=== PATIENT | male | born 1990 | race Native Hawaiian/Other Pacific Islander ===

== ENCOUNTER 2022-08-22 07:13 | Emergency (ER) | payer MEDICAID ==
--- NOTE | 2022-08-22 07:50 | ERPHSYRPT ---
- History of Present Illness Time Seen by Provider: 08/22/22 07:50 Source: patient Exam Limitations: no limitations Physician History: This is a 32-year-old white male who presents with 1 day history of intermittent fevers, arthralgias and myalgias. He has had no nausea vomiting or diarrhea. Patient has a mild cough as well. Patient has no known exposure to individuals with similar symptoms or diagnoses of flu. He last took Tylenol yesterday during the day. Timing/Duration: yesterday Fever Severity: mild (To moderate) Fever Therapy PRIMARY CARE PROVIDER: none Associated Symptoms: cough, headache, muscle aches, No abdominal pain, No chest pain, No confusion, No nausea/vomiting, No sore throat, No stiff neck Allergies/Adverse Reactions: No Known Drug Allergies Allergy (Unverified 08/22/22 08:18) Travel Risk - International Travel Have you traveled outside of the country in past 3 weeks: No - Coronavirus Screening Are you exhibiting any of the following symptoms?: Yes Symptoms: Fever, Cough: New Onset, Headaches/Body Aches/Fatigue Close contact with a COVID-19 positive Pt in past 14-21 Days: No - Review of Systems Constitutional: Fever Eyes: No Symptoms Ears, Nose, & Throat: No Symptoms Respiratory: Cough Cardiac: No Symptoms Abdominal/Gastrointestinal: No Symptoms Genitourinary Symptoms: No Symptoms Musculoskeletal: Arthralgias, Myalgias Skin: No Symptoms Neurological: No Symptoms Psychological: No Symptoms Endocrine: No Symptoms Hematologic/Lymphatic: No Symptoms Immunological/Allergic: No Symptoms All Other Systems: Reviewed and Negative - Past Medical History Pertinent Past Medical History: Yes - Past Surgical History Past Surgical History: Yes - Nursing Vital Signs Nursing Vital Signs: Initial Vital Signs Temperature 100.1 F 08/22/22 08:00 Pulse Rate 106 H 08/22/22 08:00 Respiratory Rate 20 08/22/22 08:00 Blood Pressure 128/73 08/22/22 08:00 O2 Sat by Pulse Oximetry 97 08/22/22 08:00 Pain Scale Pain Intensity 8 - Physical Exam General Appearance: no apparent distress, alert, anxiety Eye Exam: PERRL/EOMI, eyes nml inspection ENT Exam: normal ENT inspection Neck Exam: normal inspection, non-tender, supple, full range of motion Respiratory Exam: normal breath sounds, lungs clear, no respiratory distress, No chest non-tender Cardiovascular/Chest Exam: tachycardia Gastrointestinal/Abdominal Exam: soft, non tender, no distention, no mass, no guarding, no ecchymosis, no organomegaly, no pulsatile mass, normal bowel sounds Rectal Exam: not done Extremity Exam: non-tender, normal range of motion, normal inspection Neurologic Exam: alert, oriented x 3, cooperative, cutter 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 II-XII nml as tested, normal mood/affect, nml cerebellar function, nml station & gait, sensation nml Skin Exam: normal color, warm, dry Lymphatic: No adenopathy SpO2 Interpretation: normal O2 Delivery: Room Air - Course Nursing assessment & vital signs reviewed: Yes Ordered Tests: Medication Summary Discontinued Medications Generic Name Dose Route Start Last Admin Trade Name Kyle PRN Reason Stop Dose Admin Acetaminophen 650 mg 08/22/22 08:11 08/22/22 08:20 Acetaminophen 325 Mg Tablet PO 08/22/22 08:12 Not Given STAT STA Hydrocodone Bitart/Acetaminophen 15 ml 08/22/22 08:19 08/22/22 08:22 Hydrocodone/Acetaminophen 5 Ml Udcup PO 08/22/22 08:20 15 ml STAT STA Administration Hydrocodone Bitart/Acetaminophen Confirm 08/22/22 08:21 Hydrocodone/Acetaminophen 5 Ml Udcup Administered 08/22/22 08:22 Dose 15 ml .ROUTE .STK-MED ONE Ibuprofen 600 mg 08/22/22 08:11 08/22/22 08:20 Ibuprofen 600 Mg Tablet PO 08/22/22 08:12 600 mg STAT STA Administration Ibuprofen Confirm 08/22/22 08:19 Ibuprofen 600 Mg Tablet Administered 08/22/22 08:20 Dose 600 mg .ROUTE .STK-MED ONE Lab/Rad Data: Laboratory Results 08/22/22 08/22/22 Range/Units 08:24 08:24 Influenza Type A Ag NEGATIVE (NEGATIVE) Influenza Type B Ag NEGATIVE (NEGATIVE) RSV (PCR) NEGATIVE (Negative) SARS-CoV-2 (PCR) POSITIVE A (NEGATIVE) Group A Strep Antibody NOT DETECTED (NEGATIVE) - Progress Progress: improved Counseled pt/family regarding: lab results, diagnosis, need for follow-up - Departure Departure Disposition: Home Clinical Impression: Fever Condition: Stable Critical Care Time: No Referrals: STEVE VELOZ [Primary Care Provider] - Follow up/PCP as directed Additional Instructions: Drink plenty of cool liquids. May use a lukewarm bath/shower to help control fever as well. Take your medication as prescribed. Add ibuprofen 600 mg orally every 6-8 hours with food for fever/aches and pains control. Quarantine yourself per your employees protocol. Prescriptions: Hydrocodone/Acetaminophen [Hydrocodone-Acetamn 7.5-325/15] 10 ml PO Q8H PRN PRN #120 ml MDD 30 ml PRN Reason: Cough
[2022-08-22] MEDS ORDERED: MOTRIN 600 MG PO STA (08:11)
[2022-08-22] MEDS ORDERED: TYLENOL 325 MG PO STA (08:11)
[2022-08-22] MEDS ORDERED: HYDROCODONE-ACETAMIN 2.5-108/5 ML SOLUTION PO STA (08:19)
[2022-08-22] MEDS ORDERED: MOTRIN 600 MG ONE (08:19)
[2022-08-22] MEDS ORDERED: HYDROCODONE-ACETAMIN 2.5-108/5 ML SOLUTION ONE (08:21)
[2022-08-22 09:08] LABS: INFLUENZA A NEGATIVE (NEGATIVE); INFLUENZA B NEGATIVE (NEGATIVE); RESPIRATORY SYNCTIAL VIRUS NEGATIVE (Negative)
[2022-08-22 09:11] LABS: SARS-CoV-2 Xpert Express POSITIVE (NEGATIVE)
[2022-08-22 09:29] VITALS: BP 131/84; PULSE 78; O2SAT 96
== END 2022-08-22 09:29 | disposition home or self-care (01) ==
LOC: ED 07:13
DX: R50.9 Fever, unspecified (principal); M79.10 Myalgia, unspecified site; R05.1 Acute cough
CPT/HCPCS: 0241U; 87651; 99283; A9270-GY

== ENCOUNTER 2022-10-19 08:10 | Emergency (ER) | payer MEDICAID, OTHER ==
[2022-10-19] MEDS ORDERED: Sodium Chloride 0.9% 1000 ML 1,000 ML IV STA (08:23)
[2022-10-19] MEDS ORDERED: Sodium Chloride 0.9% 1000 ML 1,000 ML ONE (08:46)
[2022-10-19 08:48] LABS: BASOPHIL % 0.2 % (0.0-0.4); Basophil (Absolute #) 0.02 x10^3/uL (0-0.4); Eosinophil % 0.7 % (0.00-5.0); Eosinophil (Absolute #) 0.06 x10^3/uL (0-0.5); Hematocrit 41.6 % (42-50); Hemoglobin 13.4 g/dL (12.5-18.0); IMMATURE GRAN # 0.04 x10^3u/L (0.00-0.03); IMMATURE GRAN % 0.5 % (0.00-0.4); Lymphocyte (Absolute #) 1.37 x10^3/uL (1.0-4.6); Lymphocytes % 16.6 % (24.0-44.0); Mean Cell Volume 89.7 fL (78-100); Mean Corpuscular Hemoglobin 28.9 pg (26-32); Mean Corpuscular Hgb Concent. 32.2 g/dL (32-36); Mean Platelet Volume 8.8 fL (7.5-11.0); Monocyte (Absolute #) 0.68 x10^3/uL (0.0-1.3); Monocytes % 8.2 % (0.0-12.0); Neutrophil % 73.8 % (36.0-66.0); Platelet Count 305 x10^3/uL (150-450); Red Blood Count 4.64 x10^6/uL (4.1-5.6); Red Cell Distribution Width 15.2 % (11.5-14.0); White Blood Count 8.3 x10^3/uL (4.0-10.5)
[2022-10-19 09:05] LABS: ALBUMIN 4.4 g/dL (3.5-5.0); ALKALINE PHOSPHATASE 79 U/L (38-126); BLOOD UREA NITROGEN 25 mg/dL (9-20); CHLORIDE 110 mmol/L (98-107); Calcium 8.7 mg/dL (8.4-10.2); Carbon Dioxide 23 mmol/L (22-30); Creatinine 1 0.83 mg/dL (0.66-1.25); EST GLOMERULAR FILTRATION RATE > 60.0 ML/MIN; Glucose 94 mg/dL (74-106); LIPASE 37 U/L (23-300); Potassium 4.2 mmol/L (3.5-5.1); SGOT/AST 30 U/L (17-59); SGPT/ALT 31 U/L (0-50); SODIUM 140 mmol/L (137-145); Total Protein 7.4 g/dL (6.3-8.2)
[2022-10-19] MEDS ORDERED: MORPHINE SULFATE 4 MG INJ IV ONE (09:23)
[2022-10-19] MEDS ORDERED: Zofran 4 MG/2 ML VIAL IV ONE (09:23)
[2022-10-19] MEDS ORDERED: Zofran 4 MG/2 ML VIAL ONE (09:27)
[2022-10-19] MEDS ORDERED: MORPHINE SULFATE 4 MG INJ ONE (09:27)
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
--- NOTE | 2022-10-19 09:44 | XRAY ---
Indication: Epigastric pain. Multiple contiguous axial images obtained through the abdomen and pelvis without contrast. Comparison: None Lung bases are clear. Heart not enlarged. Old right innominate bone fracture with beam artifact from multiple orthopedic hardware limits exam. Stomach is distended with food/fluid. Contracted gallbladder without gallstones. Noncontrasted stomach and bowel loops appear nonobstructed. Appendix not visualized. Mild diffuse fecal debris throughout. Anterior right lobe liver demonstrate 9 mm peripheral cyst. IVC filter in situ with struts/legs seen extraluminal to the IVC. Distal IVC appears tiny. No free fluid/air. Abdomen and lesser degree pelvis demonstrates diffuse varices. Abdominal wall also demonstrates moderate diffuse subcutaneous varices. Primary concern is for portal hypertension. Main portal vein diameter is 1.9 cm. No hepatosplenomegaly. Remaining liver, gallbladder, pancreas, spleen, adrenal glands, kidneys, ureters, and bladder are unremarkable for noncontrast exam. Minimal aortic calcifications without AAA. Remaining osseous structures intact with minimal generative changes of the visualized spine, mild double curvature thoracolumbar scoliosis, and moderate/advanced degenerative changes of the right hip. Impression: 1. Old right pelvic fracture with beam artifact from multiple fixation hardware. 2. Tiny IVC with IVC filter in situ. IVC filter struts/legs seen extraluminal without complications. 3. Diffuse abdominal/pelvic varices. Also diffuse abdominal wall subcutaneous varices. Findings favor portal hypertension. 4. Mild diffuse fecal stasis. 5. Chronic findings including small hepatic cyst, minimal arteriosclerotic disease, and chronic bony findings.
[2022-10-19 10:26] VITALS: BP 143/94; PULSE 78; O2SAT 99
== END 2022-10-19 10:26 | disposition home or self-care (01) ==
LOC: ED 08:10
DX: R19.7 Diarrhea, unspecified (principal); R10.13 Epigastric pain; K76.6 Portal hypertension; I86.2 Pelvic varices; I86.8 Varicose veins of other specified sites; K76.89 Other specified diseases of liver; M41.85 Other forms of scoliosis, thoracolumbar region; I10 Essential (primary) hypertension; Z28.310 Unvaccinated for COVID-19; Z72.0 Tobacco use
CPT/HCPCS: 36415; 74176; 80053; 83690; 84484; 85025; 96360; 96374; 96375; 99284; J2270; J2405

== ENCOUNTER 2022-12-29 12:56 | Day surgery (SDC) | payer OTHER ==
[2022-12-29] MEDS ORDERED: LIDOCAINE HCL 2% 100 MG/5 ML IJ ONE (12:57)
[2022-12-29] MEDS ORDERED: Versed 2 MG/2 ML Injection ONE ×2 (15:06)
[2022-12-29] MEDS ORDERED: DIPRIVAN 200 MG/20 ML IV ONE ×2 (15:29→15:37)
[2022-12-29] MEDS ORDERED: Lactated Ringers 1,000 ML IV ONE (16:10)
--- NOTE | 2022-12-29 16:45 | XRAY ---
Indication: Bilateral L4-S1 MBB. Intraoperative fluoroscopy provided for 17 seconds. Single digital spot image submitted for interpretation demonstrates posterior needle tips projecting over the expected left and right L4-S1 nerve roots. Correlate with intraoperative findings/report.
--- NOTE | 2022-12-29 16:47 | XRAY ---
17 seconds of fluoroscopy was used in surgery for a bilateral L4-S1 MBB.
== END 2022-12-29 16:00 | disposition home or self-care (01) ==
LOC: SDC-PAIN 12:56
PROVIDERS: ATTEND Psychiatry & Neurology Pain Medicine
DX: M47.816 Spondylosis without myelopathy or radiculopathy, lumbar region (principal); Z79.899 Other long term (current) drug therapy
CPT/HCPCS: 36415; 64493; 64494; 72020; 77002; 84403; J2250; J2704

== ENCOUNTER 2023-01-19 11:43 | Day surgery (SDC) | payer OTHER ==
[2023-01-19] MEDS ORDERED: BUPIVACAINE 0.5% VIAL IJ ONE (11:44)
[2023-01-19] MEDS ORDERED: Versed 2 MG/2 ML Injection ONE ×2 (13:12→13:28)
[2023-01-19] MEDS ORDERED: DIPRIVAN 200 MG/20 ML IV ONE (14:07)
[2023-01-19] MEDS ORDERED: Lactated Ringers 1,000 ML IV ONE (14:24)
--- NOTE | 2023-01-19 16:28 | XRAY ---
Indication: Bilateral L4-S1 MBB. Intraoperative fluoroscopy provided for 15 seconds. Single digital spot image submitted for interpretation demonstrates posterior needle tips projecting over the expected left and right L4-S1 nerve roots. Correlate with intraoperative findings/report.
--- NOTE | 2023-01-19 16:37 | XRAY ---
15 seconds of fluoroscopy was used in surgery for a bilateral L4-S1 MBB.
== END 2023-01-19 14:40 | disposition home or self-care (01) ==
LOC: SDC-PAIN 11:43
PROVIDERS: ATTEND Psychiatry & Neurology Pain Medicine
DX: M47.816 Spondylosis without myelopathy or radiculopathy, lumbar region (principal); Z79.899 Other long term (current) drug therapy
CPT/HCPCS: 64493; 64494; 72020; 77002; J2250; J2704

== ENCOUNTER 2023-02-09 13:56 | Day surgery (SDC) | payer OTHER ==
[2023-02-09] MEDS ORDERED: BUPIVACAINE 0.5% VIAL IJ ONE (13:57)
[2023-02-09] MEDS ORDERED: LIDOCAINE HCL 1% 50 MG/5 ML VL PF IJ ONE (13:57)
[2023-02-09] MEDS ORDERED: Depo-Medrol 40 MG/ML IM ONE (13:57)
[2023-02-09] MEDS ORDERED: Versed 2 MG/2 ML Injection ONE (14:55)
[2023-02-09] MEDS ORDERED: DIPRIVAN 200 MG/20 ML IV ONE ×2 (15:00→15:18)
[2023-02-09] MEDS ORDERED: Lactated Ringers 1,000 ML IV ONE (15:11)
--- NOTE | 2023-02-10 07:16 | XRAY ---
Indication: Right L4-S1 RFA. Intraoperative fluoroscopy provided for 23 seconds. 4 digital spot image submitted for interpretation demonstrates posterior needle tips projecting over the expected right L4-S1 nerve roots. Correlate with intraoperative findings/report.
--- NOTE | 2023-02-10 15:07 | XRAY ---
23 seconds of fluoroscopy was used in surgery for a right L4-S1 RFA.
== END 2023-02-09 15:40 | disposition home or self-care (01) ==
LOC: SDC-PAIN 13:56
PROVIDERS: ATTEND Psychiatry & Neurology Pain Medicine
DX: M47.816 Spondylosis without myelopathy or radiculopathy, lumbar region (principal); Z79.899 Other long term (current) drug therapy
CPT/HCPCS: 64635; 64636; 72100; 77002; J1030; J2001; J2250; J2704

== ENCOUNTER 2023-02-23 12:58 | Day surgery (SDC) | payer OTHER ==
[2023-02-23] MEDS ORDERED: BUPIVACAINE 0.5% VIAL IJ ONE (12:59)
[2023-02-23] MEDS ORDERED: LIDOCAINE HCL 1% 50 MG/5 ML VL PF IJ ONE (12:59)
[2023-02-23] MEDS ORDERED: Depo-Medrol 40 MG/ML IM ONE (12:59)
[2023-02-23] MEDS ORDERED: Versed 2 MG/2 ML Injection ONE (13:42)
[2023-02-23] MEDS ORDERED: DIPRIVAN 200 MG/20 ML IV ONE ×2 (14:53→14:58)
[2023-02-23] MEDS ORDERED: Lactated Ringers 1,000 ML IV ONE (15:22)
--- NOTE | 2023-02-23 16:31 | XRAY ---
Indication: Left L4-S1 RFA. Intraoperative fluoroscopy provided for 26 seconds. 5 digital spot images submitted for interpretation demonstrates posterior needle tips projecting over the expected left L4-S1 nerve roots. Correlate with intraoperative findings/report.
--- NOTE | 2023-02-23 17:22 | XRAY ---
26 seconds of fluoroscopy was used in surgery for a left L4-S1 RFA.
== END 2023-02-23 15:30 | disposition home or self-care (01) ==
LOC: SDC-PAIN 12:58
PROVIDERS: ATTEND Psychiatry & Neurology Pain Medicine
DX: M47.816 Spondylosis without myelopathy or radiculopathy, lumbar region (principal); Z79.899 Other long term (current) drug therapy
CPT/HCPCS: 64635; 64636; 72100; 77002; J1030; J2001; J2250; J2704

== ENCOUNTER 2023-07-06 11:48 | Day surgery (SDC) | payer OTHER ==
[2023-07-06] MEDS ORDERED: Depo-Medrol 40 MG/ML IM ONE (11:49)
[2023-07-06] MEDS ORDERED: BUPIVACAINE 0.5% VIAL IJ ONE (11:49)
[2023-07-06] MEDS ORDERED: DIPRIVAN 200 MG/20 ML IV ONE (15:34)
[2023-07-06] MEDS ORDERED: Lactated Ringers 1,000 ML IV ONE (17:04)
--- NOTE | 2023-07-06 17:04 | XRAY ---
14 seconds of fluoroscopy was used in surgery for a right intra-articular hip injection.
--- NOTE | 2023-07-06 17:05 | XRAY ---
Indication: Right hip injection. Intraoperative fluoroscopy provided for 14 seconds. 2 digital spot images submitted for interpretation demonstrates needle tip projecting lateral to right femur neck. Small amount of contrast injected for needle tip placement. Correlate with intraoperative findings/report. Incidental incompletely visualized right pelvic fixation plates/screws.
== END 2023-07-06 15:54 | disposition home or self-care (01) ==
LOC: SDC-PAIN 11:48
PROVIDERS: ATTEND Psychiatry & Neurology Pain Medicine
DX: M16.11 Unilateral primary osteoarthritis, right hip (principal); Z79.899 Other long term (current) drug therapy
CPT/HCPCS: 20610; 73501; 77002; J1030; J2704; Q9966

== ENCOUNTER 2023-07-07 11:51 | Emergency (ER) | payer OTHER ==
--- NOTE | 2023-07-07 12:10 | XRAY ---
Indication: Facial numbness. Multiple contiguous axial images obtained through the head without contrast. Comparison: None Normal appearing brain parenchyma, ventricles, and bony calvarium. Visualized paranasal sinuses and mastoid air cells are clear. Impression: Normal CT head without contrast exam.
[2023-07-07 12:15] VITALS: TEMP 98.4
[2023-07-07] MEDS ORDERED: Sodium Chloride 0.9% 1000 ML 1,000 ML IV STA (12:21)
[2023-07-07 12:38] LABS: Absolute Neutrophil Ct (ANC) 10.36 x10^3/uL (1.4-6.9); BASOPHIL % 0.2 % (0.0-0.4); Basophil (Absolute #) 0.03 x10^3/uL (0-0.4); Eosinophil % 0.1 % (0.00-5.0); Eosinophil (Absolute #) 0.01 x10^3/uL (0-0.5); Hematocrit 45.8 % (42-50); Hemoglobin 14.8 g/dL (12.5-18.0); IMMATURE GRAN # 0.07 x10^3u/L (0.00-0.03); IMMATURE GRAN % 0.6 % (0.00-0.4); Lymphocyte (Absolute #) 1.58 x10^3/uL (1.0-4.6); Lymphocytes % 12.5 % (24.0-44.0); Mean Cell Volume 87.9 fL (78-100); Mean Corpuscular Hemoglobin 28.4 pg (26-32); Mean Corpuscular Hgb Concent. 32.3 g/dL (32-36); Mean Platelet Volume 9.1 fL (7.5-11.0); Monocyte (Absolute #) 0.63 x10^3/uL (0.0-1.3); Neutrophil % 81.6 % (36.0-66.0); Platelet Count 401 x10^3/uL (150-450); Red Blood Count 5.21 x10^6/uL (4.1-5.6); Red Cell Distribution Width 13.5 % (11.5-14.0); White Blood Count 12.7 x10^3/uL (4.0-10.5)
[2023-07-07] MEDS ORDERED: Sodium Chloride 0.9% 1000 ML 1,000 ML ONE (12:47)
[2023-07-07] MEDS ORDERED: TORAdol 30 mg Injection ONE (12:50)
[2023-07-07] MEDS ORDERED: TORAdol 30 mg Injection IV ONE (12:50)
[2023-07-07 12:53] LABS: ALBUMIN 4.7 g/dL (3.5-5.0); ALKALINE PHOSPHATASE 65 U/L (38-126); ANION GAP 16.9 MEQ/L (5-15); BLOOD UREA NITROGEN 14 mg/dL (9-20); CHLORIDE 108 mmol/L (98-107); Calcium 9.1 mg/dL (8.4-10.2); Carbon Dioxide 22 mmol/L (22-30); Creatinine 1 0.85 mg/dL (0.66-1.25); EST GLOMERULAR FILTRATION RATE > 60.0 ML/MIN; Glucose 102 mg/dL (74-106); SGOT/AST 23 U/L (17-59); SGPT/ALT 29 U/L (0-50); SODIUM 142 mmol/L (137-145); Total Protein 7.8 g/dL (6.3-8.2)
[2023-07-07 12:54] VITALS: RESP 16; O2SAT 96
--- NOTE | 2023-07-07 13:11 | ERPHSYRPT ---
- History of Present Illness Time Seen by Provider: 07/07/23 12:00 Source: patient Exam Limitations: no limitations Patient Subjective Stated Complaint: Pt reports this morning he woke up around [id number] and noticed his right cheek felt numb and had a little chest pain. A pprox 45 minutes ago patient realized it is hard to wink right eye and the right side of his lip doesn't feel like it is moving as well. Also reports headache x5 days and history of hypertension that he does not take medication for. Triage Nursing Assessment: Pt alert and oriented x3. No apparent respiratory distress. Ambulated to ED cot without difficulty. Skin w/p/d. Strong equal guide tour bilat. Mild right facial droop. Pt was able to wink left eye quickly and without difficulty but took a moment to be able to wink right eye. Physician History: Patient is a 33-year-old white male who presents with a complaint of a headache on the right parietal area for 5 days. Today he noticed right facial drooping he also noted that he could blink his eye with more force than on the right side he also noted numbness of the right side of the tongue and right facial weakness. He is hypertensive but is not treated. He also was very anxious. Timing/Duration: day(s) (5) Severity: mild Character of Deficits: altered sensation, Right Facial Baseline/Normal Cognition: alert oriented x 3 Current Cognition: alert oriented x 3 Baseline Gait: walks w/o assistance Associated Symptoms: slurred speech Allergies/Adverse Reactions: No Known Drug Allergies Allergy (Verified 07/07/23 12:07) Home Medications: Hydrocodone/Acetaminophen [Hydrocodone-Acetamin 10-325 mg] 1 tab PO BID PRN 07/07/23 [History] Topiramate [Topiramate ER] See Rx Instructions .ROUTE .COMPLEX 07/07/23 [History] Hx Tetanus, Diphtheria Vaccination/Date Given: Yes Hx Influenza Vaccination/Date Given: No Hx Pneumococcal Vaccination/Date Given: No Travel Risk - International Travel Have you traveled outside of the country in past 3 weeks: No - Coronavirus Screening Are you exhibiting any of the following symptoms?: No Close contact with a COVID-19 positive Pt in past 14-21 Days: No - Vaccine Status Have you recieved a Covid-19 vaccination: No - Review of Systems Constitutional: No Fever, No Chills Eyes: No Symptoms Ears, Nose, & Throat: No Symptoms Respiratory: No Cough, No Dyspnea Cardiac: No Chest Pain, No Edema, No Syncope Abdominal/Gastrointestinal: No Abdominal Pain, No Nausea, No Vomiting, No Diarrhea Genitourinary Symptoms: No Dysuria Musculoskeletal: No Back Pain, No Neck Pain Skin: No Rash Neurological: No Dizziness, No Focal Weakness, No Sensory Changes Psychological: No Symptoms Endocrine: No Symptoms All Other Systems: Reviewed and Negative - Past Medical History Pertinent Past Medical History: Yes Cardiac History: Hypertension Musculoskeletal History: Fractures GI Medical History: Other Other Medical History: bowel obstruction, fx: right ankle, right hip, forearm, jaw - Past Surgical History Past Surgical History: Yes Gastrointestinal: Colon Resection Musculoskeletal: Orthopedic Surgery - Social History Smoking Status: Current every day smoker Exposure to second hand smoke: Yes Drug Use: none Patient Lives Alone: No - Nursing Vital Signs Nursing Vital Signs: Initial Vital Signs Temperature 98.4 F 07/07/23 11:52 Pulse Rate 108 H 07/07/23 11:52 Respiratory Rate 17 07/07/23 11:52 Blood Pressure 158/107 07/07/23 11:52 O2 Sat by Pulse Oximetry 99 07/07/23 11:52 Pain Scale Pain Intensity 4 - Nicolás Coma Scale Best Eye Response (Nicolás): (4) open spontaneously Best Verbal Response (Baker): (5) oriented Best Motor Response (Nicolás): (6) obeys commands Nicolás Total: 15 - Physical Exam General Appearance: no apparent distress, alert Eye Exam: bilateral eye: PERRL, EOMI Ears, Nose, Throat Exam: normal ENT inspection, moist mucous membranes Neck Exam: normal inspection, non-tender, supple Respiratory: normal breath sounds, lungs clear, airway intact, No respiratory distress Cardiovascular: regular rate/rhythm, No edema Gastrointestinal: soft, No tenderness, No distention Back Exam: normal inspection Extremity Exam: normal inspection, No pedal edema 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, 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 Exam: facial asymmetry, facial droop (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 there is paralysis noted from the forehead do), facial weakness, tongue midline Coordination/Gait: normal finger to nose, normal gait Skin Exam: normal color, warm, dry, No rash SpO2 Interpretation: normal SpO2: 96 O2 Delivery: Room Air - Course Nursing assessment & vital signs reviewed: Yes EKG Interpreted by Me: RATE (112), Sinus Tach, NORMAL AXIS, NORMAL QRS, NORMAL ST-T - CT Exams Head CT Interpretation: Negative Ordered Tests: Active Orders 24 hr Category Date Time Status EKG-ER Only STAT Care 07/07/23 12:31 Active IV Insertion STAT Care 07/07/23 12:21 Active HEAD WITHOUT CONTRAST [CT] Stat Exams 07/07/23 11:54 Completed CBC W DIFF Stat Lab 07/07/23 12:10 Completed CMP Stat Lab 07/07/23 12:10 Completed Lactic Acid Stat Lab 07/07/23 12:37 Completed UA W/RFX UR CULTURE Stat Lab 07/07/23 12:31 Ordered Medication Summary Generic Name Dose Route Start Last Admin Trade Name Freq PRN Reason Stop Dose Admin Sodium Chloride 1,000 mls @ 999 mls/hr 07/07/23 12:21 07/07/23 12:48 Sodium Chloride 0.9% 1000 Ml IV 07/07/23 13:21 999 mls/hr .Q1H1M STA Administration Discontinued Medications Generic Name Dose Route Start Last Admin Trade Name Freq PRN Reason Stop Dose Admin Sodium Chloride Confirm 07/07/23 12:47 Sodium Chloride 0.9% 1000 Ml Administered 07/07/23 12:48 Dose 1,000 mls @ ud .ROUTE .STK-MED ONE Ketorolac Tromethamine 30 mg 07/07/23 12:50 07/07/23 12:51 Ketorolac Tromethamine 30 Mg/Ml Inj IV 07/07/23 12:51 30 mg STAT ONE Administration Ketorolac Tromethamine Confirm 07/07/23 12:50 Ketorolac Tromethamine 30 Mg/Ml Inj Administered 07/07/23 12:51 Dose 30 mg .ROUTE .STK-MED ONE Lab/Rad Data: Laboratory Result Diagrams 07/07/23 12:10 07/07/23 12:10 Laboratory Results 07/07/23 07/07/23 07/07/23 Range/Units 12:37 12:10 12:10 WBC 12.7 H (4.0-10.5) x10^3/uL RBC 5.21 (4.1-5.6) x10^6/uL Hgb 14.8 (12.5-18.0) g/dL Hct 45.8 (42-50) % MCV 87.9 (78-100) fL MCH 28.4 (26-32) pg MCHC 32.3 (32-36) g/dL RDW 13.5 (11.5-14.0) % Plt Count 401 (150-450) x10^3/uL MPV 9.1 (7.5-11.0) fL Gran % 81.6 H (36.0-66.0) % Immature Gran % (Auto) 0.6 H (0.00-0.4) % Nucleat RBC Rel Count 0.0 (0.00-0.1) % Eos # (Auto) 0.01 (0-0.5) x10^3/uL Immature Gran # (Auto) 0.07 H (0.00-0.03) x10^3u/L Absolute Lymphs (auto) 1.58 (1.0-4.6) x10^3/uL Absolute Monos (auto) 0.63 (0.0-1.3) x10^3/uL Absolute Nucleated RBC 0.00 (0.00-0.01) x10^3u/L Lymphocytes % 12.5 L (24.0-44.0) % Monocytes % 5.0 (0.0-12.0) % Eosinophils % 0.1 (0.00-5.0) % Basophils % 0.2 (0.0-0.4) % Absolute Granulocytes 10.36 H (1.4-6.9) x10^3/uL Basophils # 0.03 (0-0.4) x10^3/uL Sodium 142 (137-145) mmol/L Potassium 4.0 (3.5-5.1) mmol/L Chloride 108 H (98-107) mmol/L Carbon Dioxide 22 (22-30) mmol/L Anion Gap 16.9 H (5-15) MEQ/L BUN 14 (9-20) mg/dL Creatinine 0.85 (0.66-1.25) mg/dL Estimated GFR > 60.0 ML/MIN Glucose 102 (74-106) mg/dL Lactic Acid 1.4 (0.4-2.0) Calcium 9.1 (8.4-10.2) mg/dL Total Bilirubin 0.40 (0.2-1.3) mg/dL AST 23 (17-59) U/L ALT 29 (0-50) U/L Alkaline Phosphatase 65 (38-126) U/L Serum Total Protein 7.8 (6.3-8.2) g/dL Albumin 4.7 (3.5-5.0) g/dL - Progress Progress: unchanged Medical Desision Making - Diagnostic Testing Radiological Interpretation: Reviewed by me - Risk of complications Low Risk: Low risk of morbidity from additional dx testing or treatment - Departure Departure Disposition: Home Clinical Impression: Sanders's palsy Condition: Stable Critical Care Time: No Referrals: DEB OBREGON [Primary Care Provider] - Follow up/PCP as directed Instructions: Sanders's Palsy (DC) Prescriptions: Acyclovir 800 mg [Acyclovir] 800 mg PO TID 7 Days #21 tablet Prednisone 10 mg [Deltasone 10 mg] 20 mg PO TID 7 Days #21 tablet
[2023-07-07 13:18] VITALS: BP 141/103; PULSE 114
[2023-07-07 13:46] LABS: Appearance Clear (Clear); Bacteria None Seen /HPF (None Seen); Bilirubin Negative (Negative); Blood Negative (Negative); Epithelial Cells None Seen /HPF (None Seen); Glucose, Urine Negative (Negative); Hyaline Casts NONE SEEN /LPF (0-2); Ketones Trace (Negative); Leukocyte Esterase Negative (Negative); Nitrite Negative (Negative); Ph 5.5 (4.6-8.0); Protein,Urine Dip Trace (Negative); RBC 0-2 /HPF (0-5); Specific Gravity >=1.030 (1.005-1.030); Urobilinogen 0.2 mg/dL (0.2); WBC 0-2 /HPF (0-5)
[2023-07-07 13:54] LABS: ADD URINE CULTURE? NO (NO)
== END 2023-07-07 13:53 | disposition home or self-care (01) ==
LOC: ED 11:51
DX: G51.0 Bell's palsy (principal); R51.9 Headache, unspecified; I10 Essential (primary) hypertension; Z79.891 Long term (current) use of opiate analgesic; Z79.52 Long term (current) use of systemic steroids; Z79.899 Other long term (current) drug therapy; Z28.310 Unvaccinated for COVID-19; Z72.0 Tobacco use
CPT/HCPCS: 36000; 36415; 70450; 80053; 81001; 83605; 85025; 93005; 96360; 96374; 99284; J1885

== ENCOUNTER 2024-05-21 12:20 | Emergency (ER) | payer OTHER ==
[2024-05-21 12:29] VITALS: TEMP 98.1
[2024-05-21] MEDS ORDERED: Sodium Chloride 0.9% 1000 ML 1,000 ML ONE (13:06)
[2024-05-21] MEDS ORDERED: APRESOLINE 20 MG/ML INJ ONE (13:06)
[2024-05-21] MEDS: Sodium Chloride 0.9% 1000 ML 1,000 ML IV STA (13:07)
[2024-05-21] MEDS: APRESOLINE 20 MG/ML INJ IV ONE (13:08)
[2024-05-21 13:33] LABS: Hematocrit 41.6 % (40.1-51.0); Hemoglobin 13.9 g/dL (13.7-17.5); Mean Cell Volume 86.5 fL (79.0-92.2); Mean Corpuscular Hemoglobin 28.9 pg (25.7-32.2); Mean Corpuscular Hgb Concent. 33.4 g/dL (32.3-36.5); Mean Platelet Volume 9.7 fL (9.4-12.4); Platelet Count 335 x10^3/uL (163-337); Red Blood Count 4.81 x10^6/uL (4.63-6.08); Red Cell Distribution Width 13.6 % (11.6-14.4); White Blood Count 10.2 x10^3/uL (4.23-9.07)
[2024-05-21 13:38] LABS: Appearance Clear (Clear); Bacteria None Seen /HPF (None Seen); Bilirubin Negative (Negative); Blood Negative (Negative); Epithelial Cells None Seen /HPF (None Seen); Glucose, Urine Negative (Negative); Hyaline Casts NONE SEEN /LPF (0-2); Ketones Trace (Negative); Leukocyte Esterase Negative (Negative); Nitrite Negative (Negative); Ph 5.5 (4.6-8.0); Protein,Urine Dip Trace (Negative); RBC 0-2 /HPF (0-5); Specific Gravity >=1.030 (1.005-1.030); WBC 0-2 /HPF (0-5)
[2024-05-21 13:40] LABS: ADD URINE CULTURE? NO (NO)
[2024-05-21 13:42] LABS: ALBUMIN 4.5 g/dL (3.5-5.0); ANION GAP 11.3 MEQ/L (5-15); BILIRUBIN,TOTAL 0.3 mg/dL (0.2-1.3); Calcium 9.7 mg/dL (8.4-10.2); Creatinine 1 0.84 mg/dL (0.66-1.25); EST GLOMERULAR FILTRATION RATE 115.9 ML/MIN; Potassium 3.6 mmol/L (3.5-5.1); Total Protein 7.6 g/dL (6.3-8.2)
[2024-05-21 14:37] VITALS: O2SAT 96
--- NOTE | 2024-05-21 14:42 | XRAY ---
Indication: Headache. Normal head CT June 2023. Multiple contiguous axial images obtained through the head prior to and following 80 cc Isovue 370 contrast as ordered. Comparison: July 07, 2023 Again normal appearing brain parenchyma, ventricles, and bony calvarium. Postcontrast images are negative for abnormal enhancing intra or extra-axial mass. Visualized paranasal sinuses and mastoid air cells are clear. Impression: Also normal CT head with and without contrast exam.
--- NOTE | 2024-05-21 14:56 | ERPHSYRPT ---
- History of Present Illness Time Seen by Provider: 05/21/24 13:30 Source: patient Exam Limitations: no limitations Patient Subjective Stated Complaint: pt was sent here from a clinic for headache and hypertension. he states he has at headache for 3 weeks now. no injury, r efuses to taker meds for b/p Triage Nursing Assessment: pt walked in, resp easy, skin w/d/p. rubbs head, alert and oriented.moves all ext well Timing/Duration: today Severity: mild Associated Symptoms: denies symptoms Allergies/Adverse Reactions: No Known Drug Allergies Allergy (Verified 05/21/24 12:27) Hx Tetanus, Diphtheria Vaccination/Date Given: Yes Hx Influenza Vaccination/Date Given: No Hx Pneumococcal Vaccination/Date Given: No Immunizations Up to Date: Yes Travel Risk - International Travel Have you traveled outside of the country in past 3 weeks: No - Emerging Infectious Disease Are you exhibiting symptoms associated with any current EIDs: No - Review of Systems Eyes: No Symptoms Ears, Nose, & Throat: No Symptoms Respiratory: No Symptoms Cardiac: No Symptoms Abdominal/Gastrointestinal: No Symptoms Genitourinary Symptoms: No Symptoms Musculoskeletal: No Symptoms Skin: No Symptoms Neurological: No Symptoms, Sensory Changes Endocrine: No Symptoms Hematologic/Lymphatic: No Symptoms Immunological/Allergic: No Symptoms All Other Systems: Reviewed and Negative - Past Medical History Pertinent Past Medical History: Yes Neurological History: No Pertinent History ENT History: No Pertinent History Cardiac History: No Pertinent History, Hypertension Respiratory History: No Pertinent History Endocrine Medical History: No Pertinent History Musculoskeletal History: No Pertinent History, Fractures GI Medical History: No Pertinent History, Other History: No Pertinent History Psycho-Social History: No Pertinent History Other Medical History: bowel obstruction, fx: right ankle, right hip, forearm, jaw - Past Surgical History Past Surgical History: Yes Gastrointestinal: Colon Resection Musculoskeletal: Orthopedic Surgery Other Surgical History: jaw,arm ,hip ,femur - Social History Smoking Status: Current every day smoker How long have you smoked: 1/2 Exposure to second hand smoke: Yes Drug Use: none Patient Lives Alone: No - Social Determinants of Health Will the patient participate in the screening: Yes Do you worry about a steady place to live?: No Do you have any problems with any of the following?: No known problems In the past 12 months,have you had to go without utilities?: Yes Transportation Issues: No Has anyone in your support network made you feel unsafe?: No Have you or anyone in your house had to go without enough: No - Nursing Vital Signs Nursing Vital Signs: Initial Vital Signs Temperature 98.1 F 05/21/24 12:28 Pulse Rate 98 H 05/21/24 12:28 Respiratory Rate 16 05/21/24 12:28 Blood Pressure 171/112 05/21/24 12:28 O2 Sat by Pulse Oximetry 97 05/21/24 12:28 Pain Scale Pain Intensity 4 - Physical Exam General Appearance: no apparent distress Eye Exam: PERRL/EOMI, eyes nml inspection Ears, Nose, Throat Exam: normal ENT inspection Neck Exam: normal inspection Respiratory Exam: normal breath sounds Cardiovascular Exam: regular rate/rhythm Gastrointestinal/Abdomen Exam: soft Neurologic Exam: alert, oriented x 3 Skin Exam: normal color SpO2: 96 Ordered Tests: Active Orders 24 hr Category Date Time Status HEAD W/WO CONTRAST [CT] Stat Exams 05/21/24 12:48 Completed CBC Stat Lab 05/21/24 13:05 Completed CMP Stat Lab 05/21/24 13:05 Completed CULTURE,URINE Stat Lab 05/21/24 13:06 Received UA W/RFX UR CULTURE Stat Lab 05/21/24 13:06 Completed Medication Summary Discontinued Medications Generic Name Dose Route Start Last Admin Trade Name Freq PRN Reason Stop Dose Admin Hydrocodone Bitart/Acetaminophen 1 tab 05/21/24 15:35 Hydrocodone/Apap 5/325 1 Tab Tablet PO 05/21/24 15:36 STAT ONE Hydralazine HCl 10 mg 05/21/24 12:51 05/21/24 13:08 Hydralazine Hcl 20 Mg/Ml Vial IV 05/21/24 12:52 10 mg STAT ONE Administration Hydralazine HCl Confirm 05/21/24 13:06 Hydralazine Hcl 20 Mg/Ml Vial Administered 05/21/24 13:07 Dose 20 mg .ROUTE .STK-MED ONE Sodium Chloride 1,000 mls @ 999 mls/hr 05/21/24 12:50 05/21/24 14:45 Sodium Chloride 0.9% 1000 Ml IV 05/21/24 13:50 Infused .Q1H1M STA Infusion Sodium Chloride Confirm 05/21/24 13:06 Sodium Chloride 0.9% 1000 Ml Administered 05/21/24 13:07 Dose 1,000 mls @ ud .ROUTE .STK-MED ONE Lab/Rad Data: Laboratory Result Diagrams 05/21/24 13:05 05/21/24 13:05 Laboratory Results 05/21/24 05/21/24 05/21/24 Range/Units 13:06 13:05 13:05 WBC 10.2 H (4.23-9.07) x10^3/uL RBC 4.81 (4.63-6.08) x10^6/uL Hgb 13.9 (13.7-17.5) g/dL Hct 41.6 (40.1-51.0) % MCV 86.5 (79.0-92.2) fL MCH 28.9 (25.7-32.2) pg MCHC 33.4 (32.3-36.5) g/dL RDW 13.6 (11.6-14.4) % Plt Count 335 (163-337) x10^3/uL MPV 9.7 (9.4-12.4) fL Sodium 139 (135-145) mmol/L Potassium 3.6 (3.5-5.1) mmol/L Chloride 106 (98-107) mmol/L Carbon Dioxide 25 (22-30) mmol/L Anion Gap 11.3 (5-15) MEQ/L BUN 16 (9-20) mg/dL Creatinine 0.84 (0.66-1.25) mg/dL Estimated GFR 115.9 ML/MIN Glucose 95 (74-106) mg/dL Calcium 9.7 (8.4-10.2) mg/dL Total Bilirubin 0.30 (0.2-1.3) mg/dL AST 25 (17-59) U/L ALT 32 (0-50) U/L Alkaline Phosphatase 67 (38-126) U/L Serum Total Protein 7.6 (6.3-8.2) g/dL Albumin 4.5 (3.5-5.0) g/dL Urine Color Yellow (Yellow) Urine Appearance Clear (Clear) Urine pH 5.5 (4.6-8.0) Ur Specific [place] >=1.030 A (1.005-1.030) Urine Protein Trace A (Negative) Urine Glucose (UA) Negative (Negative) mg/dL Urine Ketones Trace A (Negative) Urine Blood Negative (Negative) Urine Nitrite Negative (Negative) Urine Bilirubin Negative (Negative) Urine Urobilinogen 1.0 A (0.2) mg/dL Ur Leukocyte Esterase Negative (Negative) U Hyaline Cast (Auto) NONE SEEN (0-2) /LPF Urine Microscopic RBC 0-2 (0-5) /HPF Urine Microscopic WBC 0-2 (0-5) /HPF Ur Epithelial Cells None Seen (None Seen) /HPF Urine Bacteria None Seen (None Seen) /HPF Urine Culture Reflexed NO (NO) - Progress Progress Note: Patient was seen and evaluated for migraine headache that has been getting worse for the past several weeks his blood pressure was noted to be significantly elevated he states he has not taken his medication for many many yearsRisk of stroke heart attack. partial /permanent impairment handicap explained as a result of noncompliance with his medication. He was informed of the need for follow-up with his primary care provider he will be discharged home with a prescription of losartan Patient was counseled on the possibility of meningitis however he does not want a lumbar tap at this time he is of sound medical decision making capability 05/21/24 15:40 05/21/24 15:43 Medical Desision Making - Discussion of managment Reviewed:: Need for additional workup Agreed on:: need for follow-up - Departure Clinical Impression: Hypertension, malignant, with acute intensive management Condition: Good Critical Care Time: No Referrals: DEB OBREGON [Primary Care Provider] - Follow up/PCP as directed Prescriptions: Losartan Potassium 50 mg [Cozaar 50 MG] 50 mg PO DAILY 30 Days #30 tablet
[2024-05-21] MEDS ORDERED: NORCO 5/325 MG ONE (15:38)
[2024-05-21] MEDS: NORCO 5/325 MG PO ONE (15:40)
[2024-05-21 15:56] VITALS: BP 138/88; PULSE 83; RESP 14
== END 2024-05-21 16:06 | disposition home or self-care (01) ==
LOC: ED 12:20
DX: I10 Essential (primary) hypertension (principal); R51.9 Headache, unspecified; Z79.899 Other long term (current) drug therapy; Z72.0 Tobacco use; Z59.12 Inadequate housing utilities
CPT/HCPCS: 36000; 36415; 70470; 80053; 81001; 85027; 87086; 96360; 96374; 99284; J0360; A9270-GY